=== PATIENT | male | born 1980 | race Caucasian/White ===

== ENCOUNTER 2022-01-27 07:15 | Day surgery (SDC) | payer BC, OTHER ==
[2022-01-25 12:34] VITALS: BMI 32.5
[2022-01-27] MEDS ORDERED: LIDOCAINE HCL 2% 100 MG/5 ML DISP.SYRIN ONE (09:36)
[2022-01-27] MEDS ORDERED: MIDAZOLAM HCL 2 MG/2 ML SINGLE DOSE VIAL ONE (09:37)
[2022-01-27] MEDS ORDERED: PROPOFOL 20 ML ONE (09:37)
[2022-01-27] MEDS ORDERED: BUPIVACAINE HCL/PF 0.25% (2.5MG/ML) 10 ML VIAL ONE (09:50)
[2022-01-27] MEDS ORDERED: LIDOCAINE HCL 2% (20ML MULTI-DOSE VIAL) ONE (09:51)
[2022-01-27] MEDS ORDERED: ONDANSETRON 4 MG/2 ML VIAL ONE (10:16)
[2022-01-27] MEDS ORDERED: KETOROLAC TROMETHAMINE 30 MG/1 ML VIAL ONE (10:16)
[2022-01-27] MEDS ORDERED: DEXAMETHASONE SOD PHOSPHATE 4 MG/1 ML VIAL ONE (10:16)
[2022-01-27] MEDS ORDERED: ceFAZolin SODIUM 1 GM VIAL ONE (10:20)
[2022-01-27] MEDS ORDERED: ePHEDrine SULFATE 50 MG/1 ML AMPULE ONE (11:09)
[2022-01-27] MEDS ORDERED: ONDANSETRON 4 MG/2 ML VIAL IVPUSH PRN (12:00)
[2022-01-27] MEDS ORDERED: LACTATED RINGERS SOLUTION 1,000 ML IV SCH (12:00)
[2022-01-27] MEDS ORDERED: oxyCODONE HCL 5 MG TABLET PO PRN ×2 (12:00)
[2022-01-27] MEDS ORDERED: PROMETHAZINE HCL 25 MG/1 ML VIAL IVPUSH PRN (12:00)
[2022-01-27] MEDS ORDERED: ACETAMINOPHEN 1000 MG/100 ML BAG IVPB ONE (12:01)
[2022-01-27] MEDS ORDERED: FENTANYL CITRATE/PF 50 MCG/ML VIAL ONE ×3 (12:02→12:36)
[2022-01-27 13:34] VITALS: RESP 16; TEMP 97.8
[2022-01-27] MEDS ORDERED: oxyCODONE HCL 5 MG TABLET ONE (13:37)
[2022-01-27 14:17] VITALS: BP 121/52; PULSE 92
== END 2022-01-27 14:15 | disposition home or self-care (01) ==
LOC: FASU 07:15
PROVIDERS: ATTEND Orthopaedic Surgery Hand Surgery
PROC: 0LB80ZZ Excision of Left Hand Tendon, Open Approach (ICD-10-PCS; 2022-01-27)
PROC: 0LQ80ZZ Repair Left Hand Tendon, Open Approach (ICD-10-PCS; 2022-01-27)
PROC: 01N40ZZ Release Ulnar Nerve, Open Approach (ICD-10-PCS; principal; 2022-01-27 10:24)
PROC: 0LN80ZZ Release Left Hand Tendon, Open Approach (ICD-10-PCS; 2022-01-27 10:24)
DX: G56.22 Lesion of ulnar nerve, left upper limb (principal); M65.332 Trigger finger, left middle finger; M65.842 Other synovitis and tenosynovitis, left hand
CPT/HCPCS: 88304-TC; 94760